=== PATIENT | female | born 1940 | race Caucasian/White ===

== ENCOUNTER 2018-02-10 14:07 | Outpatient (CLI) | payer MEDICARE, OTHER ==
--- NOTE | 2018-02-14 14:37 | RAD ---
MODIFIED BARIUM SWALLOW: DATE OF STUDY: 02/10/2018. HISTORY: Dysphagia, unspecified; feeding difficulties. FINDINGS: A modified barium swallow is performed by a member of the division of speech pathology and images fro m that exam are provided for interpretation. Two separate consistencies demonstrate penetration without discrete aspiration. These are the initia l ingested consistencies, which are not labeled on the imaging. IMPRESSION: Penetration without aspiration. Recommend correlation with speech pathologist's report for full deta il and feeding recommendations. POS: [facility]
== END 2018-02-10 14:08 | disposition home or self-care (01) ==
PROVIDERS: ATTEND Family Medicine
DX: R13.10 Dysphagia, unspecified (principal)
CPT/HCPCS: 74230